=== PATIENT | female | born 1945 | race Caucasian/White ===

== ENCOUNTER 2017-10-18 12:35 | Emergency (ER) | payer MEDICARE, OTHER ==
[~2017-10-18] VITALS: Ht 157.5 cm; Wt 69.0 kg
[~2017-10-18 12:35] MED LIST: CHOL10002 PO; CLON.5 PO; HYDR1TAB94 PO; Hair, Skin & N1 EACH PO; KRILL OIL500 MG; Pepcid40 MG PO; Prilosec Otc20 MG PO; Prozac40 MG PO; Vitamin B Comple1 EA PO
== END 2017-10-18 13:54 | disposition home or self-care (01) ==
LOC: ER 12:35
DX: S43.401A Unspecified sprain of right shoulder joint, initial encounter (principal); Z88.2 Allergy status to sulfonamides; Z88.1 Allergy status to other antibiotic agents; Z88.5 Allergy status to narcotic agent; Z79.899 Other long term (current) drug therapy; Z87.891 Personal history of nicotine dependence; W01.0XXA Fall on same level from slipping, tripping and stumbling without subsequent striking against object, initial encounter
CPT/HCPCS: 73030; 99283

== ENCOUNTER → 2021-12-31 | Outpatient (CLI) | payer OTHER ==
[~2021-12-31] MED LIST changes: +ACET500 PO; +OMEP20ER PO
[2021-12-31 16:07] LABS: BASOPHILS ABSOLUTE AUTO 0.03 K/mm3 (0.00-0.23); BASOPHILS PERCENT AUTO 0 % (0-2); EOSINOPHILS ABSOLUTE AUTO 0.03 K/mm3 (0.00-0.68); EOSINOPHILS PERCENT AUTO 0 % (0-6); Hemoglobin 14.9 g/dL (11.5-16.0); IMMATURE GRAN ABSOLUTE AUTO 0.02 K/mm3 (0.00-0.10); IMMATURE GRAN PERCENT AUTO 0 % (0-1); LYMPHOCYTES ABSOLUTE AUTO 1.73 K/mm3 (0.84-5.20); LYMPHOCYTES PERCENT AUTO 24 % (21-46); MONOCYTES ABSOLUTE AUTO 0.64 K/mm3 (0.16-1.47); MONOCYTES PERCENT AUTO 9 % (4-13); Mean Corpuscular HGB 31.6 pg (26.0-34.0); Mean Corpuscular HGB Conc 34.7 g/dL (31.5-36.5); Mean Corpuscular Volume 91 fL (80-100); Mean Platelet Volume 10.6 fL (9.1-12.4); NEUTROPHILS ABSOLUTE AUTO 4.83 K/mm3 (1.96-9.15); NEUTROPHILS PERCENT AUTO 66 % (41-73); Platelet Count 257 K/mm3 (150-400); RDW Coefficient Variation 12.9 % (11.7-14.2); RDW Standard Deviation 42.8 fL (35.1-46.3); Red Blood Cell Count 4.71 M/mm3 (3.80-5.20); White Blood Cell Count 7.28 K/mm3 (4.00-11.30)
[2021-12-31 16:19] LABS: Albumin, Blood 3.4 g/dL (3.4-5.0); Bilirubin, Total 0.5 mg/dL (0.1-1.0); Bun/Creatinine Ratio 19.6 (12.0-20.0); Calcium, Blood 8.7 mg/dL (8.5-10.1); Creatinine, Blood 0.92 mg/dL (0.40-1.00); Globulin, Blood 3.3 g/dL (2.2-4.0); Potassium, Blood 3.7 mmol/L (3.5-5.5); Total Protein, Blood 6.7 g/dL (6.4-8.2)
== END | disposition home or self-care (01) ==
LOC: LAB 15:59 → LAB SHORT 15:59
PROVIDERS: Physician Assistant
DX: R10.13 Epigastric pain (principal); R06.00 Dyspnea, unspecified
CPT/HCPCS: 80053; 83690; 83880; 84484; 85025

== ENCOUNTER → 2023-02-06 | Outpatient (CLI) | payer OTHER | END | disposition home or self-care (01) | LOC: LAB 16:51 → LAB SHORT 16:51 | DX: N39.0 Urinary tract infection, site not specified (principal) | CPT/HCPCS: 87086 ==

== ENCOUNTER 2023-06-15 08:37 | Day surgery (SDC) | payer OTHER ==
[2023-06-15] VITALS (43 sets, daily range): BP systolic 81–168; BP diastolic 50–151
[~2023-06-15] VITALS: Ht 157.5 cm; Wt 70.6 kg
[~2023-06-15 08:37] MED LIST changes: +Lactated Ringer's 1,000 ML IV SCH
[2023-06-15] MEDS ORDERED: Benzocaine Oral Spray 0.5ML UD ONE (09:24)
[2023-06-15] MEDS ORDERED: propofoL 60 ML IV ONE (09:24)
--- NOTE | 2023-06-15 09:32 | NUR ---
06/15/23 0932 Corry Herrera HISTORY, CHART, MEDICATIONS AND ALLERGIES REVIEWED BEFORE START OF PROCEDURE. PATIENT CONFIRMS NPO STATUS AND AGREES WITH SCHEDULED PROCEDURE. 3-LEAD EKG REVIEWED WITH PHYSICIAN PRIOR TO START OF PROCEDURE. MONITOR INTACT WITH CONTINUOUS PULSE OXIMETRY,CAPNOGRAPHY, 3-LEAD EKG, INTERMITTENT BP. SUPPLEMENTAL O2 TO BE TITRATED THROUGHOUT PROCEDURE TO MAINTAIN O2 SATURATION ABOVE 90%. PATIENT DETERMINED TO BE ASA APPROPRIATE FOR PROPOFOL SEDATION PRIOR TO START OF PROCEDURE BY DR. SAHU
[2023-06-15] MEDS ORDERED: Midazolam HCl 1MG / ML 2ML Vial ONE (09:49)
[2023-06-15] MEDS ORDERED: Atropine Sulfate 0.1 MG/ML 10ML SYR ONE (10:05)
[2023-06-15] MEDS ORDERED: Ondansetron HCl 2 MG / ML 2ML Vial ONE (10:22)
[2023-06-15] MEDS ORDERED: ePHEDrine Sulfate 50 MG/ML 1ML Injection ONE (10:26)
[2023-06-15] MEDS ORDERED: Lactated Ringer's 0 ML IV ONE (10:36)
--- NOTE | 2023-06-15 11:47 | NUR ---
Discharge instructions reviewed with patient. Patient verbalizes understanding. Copy given to patient to take home. Discharged via wheelchair to private car for ride home.
--- NOTE | 2023-06-15 12:01 | NUR ---
PT HAD AN EPISODE OF VOMITING AFTER ABD PRESSURE. PT MAINTAINED AIRWAY T/O PROCEDURE. O2 REMAINED ABOVE 97% T/O THE PROCEDURE. PT WAS GIVEN ZOFRAN 4MG IV FOR VOMITING. PT WAKE WITHOUT DIFFICULTY. C/O SOME SLIGHT ABD CRAMPING.
== END 2023-06-15 11:47 | disposition home or self-care (01) ==
LOC: ORSCMMR 08:37 → ORD 09:30 → ORSCMMR 11:47
PROVIDERS: Internal Medicine Gastroenterology
PROC: 0DB48ZX Excision of Esophagogastric Junction, Via Natural or Artificial Opening Endoscopic, Diagnostic (ICD-10-PCS; principal; 2023-06-15 09:30)
PROC: 0DB78ZX Excision of Stomach, Pylorus, Via Natural or Artificial Opening Endoscopic, Diagnostic (ICD-10-PCS; principal; 2023-06-15 09:30)
PROC: 0DB98ZX Excision of Duodenum, Via Natural or Artificial Opening Endoscopic, Diagnostic (ICD-10-PCS; principal; 2023-06-15 09:30)
PROC: 0DBK8ZX Excision of Ascending Colon, Via Natural or Artificial Opening Endoscopic, Diagnostic (ICD-10-PCS; principal; 2023-06-15 09:30)
PROC: 0DB58ZX Excision of Esophagus, Via Natural or Artificial Opening Endoscopic, Diagnostic (ICD-10-PCS; principal; 2023-06-15 09:30)
PROC: 0DBH8ZX Excision of Cecum, Via Natural or Artificial Opening Endoscopic, Diagnostic (ICD-10-PCS; principal; 2023-06-15 09:30)
DX: R10.13 Epigastric pain (principal); K21.00 Gastro-esophageal reflux disease with esophagitis, without bleeding; Z12.11 Encounter for screening for malignant neoplasm of colon; Z86.010 Personal history of colon polyps; K29.80 Duodenitis without bleeding; D12.2 Benign neoplasm of ascending colon; D12.0 Benign neoplasm of cecum; F32.A Depression, unspecified; Z79.899 Other long term (current) drug therapy; Z87.891 Personal history of nicotine dependence
CPT/HCPCS: 88305; 88312; 88342; A9270; J0461; J2250; J2405; J2704; J7120

== ENCOUNTER 2024-06-28 17:51 | Observation (INO) | payer OTHER ==
[~2024-06-28] VITALS: Ht 157.5 cm; Wt 72.6 kg
[~2024-06-28 17:51] MED LIST changes: -Lactated Ringer's 1,000 ML IV SCH
[2024-06-28] MEDS ORDERED: Morphine Sulfate 4 MG/1 ML Injection IV ONE ×2 (18:35→21:10)
[2024-06-28 19:00] LABS: BASOPHILS ABSOLUTE AUTO 0.03 K/mm3 (0.00-0.23); BASOPHILS PERCENT AUTO 0 % (0-2); EOSINOPHILS ABSOLUTE AUTO 0.04 K/mm3 (0.00-0.68); EOSINOPHILS PERCENT AUTO 0 % (0-6); Hematocrit 36.6 % (33.0-51.0); Hemoglobin 12.6 g/dL (11.5-16.0); IMMATURE GRAN ABSOLUTE AUTO 0.08 K/mm3 (0.00-0.10); IMMATURE GRAN PERCENT AUTO 1 % (0-1); LYMPHOCYTES ABSOLUTE AUTO 0.83 K/mm3 (0.84-5.20); LYMPHOCYTES PERCENT AUTO 7 % (21-46); MONOCYTES ABSOLUTE AUTO 0.81 K/mm3 (0.16-1.47); MONOCYTES PERCENT AUTO 6 % (4-13); Mean Corpuscular HGB 31.8 pg (26.0-34.0); Mean Corpuscular HGB Conc 34.4 g/dL (31.5-36.5); Mean Corpuscular Volume 92 fL (80-100); Mean Platelet Volume 9.9 fL (9.1-12.4); NEUTROPHILS ABSOLUTE AUTO 10.83 K/mm3 (1.96-9.15); NEUTROPHILS PERCENT AUTO 86 % (41-73); Platelet Count 219 K/mm3 (150-400); RDW Coefficient Variation 12.9 % (11.7-14.2); RDW Standard Deviation 43.9 fL (35.1-46.3); Red Blood Cell Count 3.96 M/mm3 (3.80-5.20); White Blood Cell Count 12.62 K/mm3 (4.00-11.30)
[2024-06-28 19:26] LABS: Bilirubin, Total 0.3 mg/dL (0.1-1.0); Bun/Creatinine Ratio 32.9 (12.0-20.0); Calcium, Blood 8.4 mg/dL (8.5-10.1); Creatinine, Blood 0.91 mg/dL (0.40-1.00); Potassium, Blood 4.1 mmol/L (3.5-5.5)
[2024-06-28] MEDS ORDERED: Ondansetron HCl 2 MG / ML 2ML Vial IV PRN (20:15)
[2024-06-28] MEDS ORDERED: NS 1,000 ML IV SCH (20:20)
[2024-06-28 21:38] VITALS: BP 135/66
[2024-06-28] MEDS ORDERED: FLUOXETINE HCL60 MG PO (21:44)
[2024-06-28] MEDS ORDERED: CELE100 PO (21:44)
[2024-06-28] MEDS ORDERED: Acetaminophen 500 MG Tab PO PRN (21:45)
[2024-06-28] MEDS ORDERED: OxyCODONE HCL 5 MG TAB PO PRN (21:45)
[2024-06-28] MEDS ORDERED: Morphine Sulfate 4 MG/1 ML Injection IV PRN (21:45)
[2024-06-28] MEDS ORDERED: IBUP200 PO (21:46)
[2024-06-29 04:53] VITALS: BP 138/65
--- NOTE | 2024-06-29 06:05 | NUR ---
NOC SUMMARY- PT ARRIVED TO ROOM IN DISCOMFORT. PT PAIN MANGED WELL PER MAR. PT DRINKING FLUIDS. PT IS VOIDING VIA PUREWICK DEVICE. BLADDER SCAN COMPLETED WITH 288 NOTED PVR. PT IS PAINFUL WITH MINIMAL MOVEMENT. PT HAS BEEN ABLE TO SLEEP SOME. CALL LIGHT IN REACH.
[2024-06-29 07:35] VITALS: BP 137/69
[2024-06-29] MEDS ORDERED: Enoxaparin 40 MG/0.4 ML SYR SC SCH (09:00)
[2024-06-29 19:16] VITALS: BP 123/61
--- NOTE | 2024-06-29 19:43 | NUR ---
SUMMARY: NO ACUTE CHANGE TODAY. VSS, A/O. MEDICATED PER EMAR FOR PAIN. PT PAINFUL WITH ANY MOVEMENT AND REFUSED REPOSTIONING MOST OF TODAY. PUREWICK IN PLACE AND PT VOIDING. INSTRUCTED TO DO BED EXERCISES TODAY WITH THERAPY. NO ACUTE CONCERNS, PT USES CALL LIGHT. REPORT PASSED TO FROILAN ARAGON.
[2024-06-30 03:58] VITALS: BP 143/72
--- NOTE | 2024-06-30 05:10 | NUR ---
SHIFT SUMMARY/TRANSFER NO ACUTE CHANGES T/O SHIFT. IS A/OX4 WITH VSS, SPO2 AT 95% ON RA. DENIES SOB. PAIN MANAGED PER EMAR, REPOSITIONING AND ICE THERAPY. INCREASED BRUISING NOTED ON RIGHT ARM AND LEFT HIP. IS VOIDING CL YELLOW URINE, PUREWICK IN PLACE. BENY PO INTAKE, DENIES N/V. IV TO RIGHT AC PATENT/SL. IS PLEASANT AND COOPERATIVE WITH CARE. PLAN TO WORK WITH THERAPY TODAY AND REPEAT IMAGING IN THE MORNING PER ORDERS. PT TRANSFERRING TO PCU 1 AT THIS TIME VIA HOSPITAL BED BY STAFF. REPORT GIVEN TO SAMY, NURSE ASSUMING CARE. PT NOTIFIED OF TRANSFER, VERBALIZES UNDERSTANDING. DECLINES NEED TO NOTIFY FAMILY OF UNIT CHANGE. PERSONAL BELONGINGS SENT WITH PT, INCLUDING DENTURES AND BOTH HEARING AIDES.
[2024-06-30 05:26] LABS: BASOPHILS ABSOLUTE AUTO 0.05 K/mm3 (0.00-0.23); BASOPHILS PERCENT AUTO 0 % (0-2); EOSINOPHILS ABSOLUTE AUTO 0.09 K/mm3 (0.00-0.68); EOSINOPHILS PERCENT AUTO 1 % (0-6); Hematocrit 34.8 % (33.0-51.0); Hemoglobin 11.5 g/dL (11.5-16.0); IMMATURE GRAN ABSOLUTE AUTO 0.05 K/mm3 (0.00-0.10); IMMATURE GRAN PERCENT AUTO 0 % (0-1); LYMPHOCYTES ABSOLUTE AUTO 1.25 K/mm3 (0.84-5.20); LYMPHOCYTES PERCENT AUTO 11 % (21-46); MONOCYTES ABSOLUTE AUTO 0.88 K/mm3 (0.16-1.47); MONOCYTES PERCENT AUTO 7 % (4-13); Mean Corpuscular HGB 31.1 pg (26.0-34.0); Mean Corpuscular Volume 94 fL (80-100); Mean Platelet Volume 10.3 fL (9.1-12.4); NEUTROPHILS ABSOLUTE AUTO 9.62 K/mm3 (1.96-9.15); NEUTROPHILS PERCENT AUTO 81 % (41-73); Platelet Count 178 K/mm3 (150-400); RDW Coefficient Variation 13.4 % (11.7-14.2); RDW Standard Deviation 46.7 fL (35.1-46.3); White Blood Cell Count 11.94 K/mm3 (4.00-11.30)
[2024-06-30 05:41] VITALS: BP 130/60
[2024-06-30 05:45] LABS: Bun/Creatinine Ratio 26.4 (12.0-20.0); Creatinine, Blood 0.72 mg/dL (0.40-1.00); Potassium, Blood 3.8 mmol/L (3.5-5.5)
[2024-06-30] MEDS ORDERED: Omeprazole 20 MG CapCR PO SCH (06:00)
[2024-06-30 07:35] VITALS: BP 128/75
[2024-06-30] MEDS ORDERED: FLUoxetine HCL 20 MG CAP PO SCH (09:00)
[2024-06-30] MEDS ORDERED: Cholecalciferol 1000 Unit Tablet (=25MCG) PO SCH (09:00)
--- NOTE | 2024-06-30 09:43 | NUR ---
am note this rn assumed care at 0700. vital signs stable. surgical status no tele. patient is alert and oriented x4. neuro is intact. perrla. patient is able to make needs known and uses call light appropriately. denies chest pain/pressure or shortness of breath. patient reports pain in left pubic ramus, where patient has a fracture, and medication per emar. see shift assessment for further detials. plan to go to a skill nursing facility once insurance has been authorized. plan is up to date.
[2024-06-30 12:40] VITALS: BP 127/60
--- NOTE | 2024-06-30 13:36 | NUR ---
update patient will be transfering to surgical room 217
[2024-06-30 13:53] VITALS: BP 129/65
--- NOTE | 2024-06-30 13:55 | NUR ---
ARRIVAL TO SURGICAL UNIT PLEASANT & ALERT. THANKFUL FOR CARE. LUNGS CLEAR & HRR. PPP. PUREWICK IN PLACE. VSS. MEDICATED FOR PAIN.
--- NOTE | 2024-06-30 14:12 | NUR ---
transfer of care patient left with all belongings to surgical room 217 at approx 1400. patient friend at bedside and aware of new room. plan remains up to date.
[2024-06-30 19:32] VITALS: BP 121/66
--- NOTE | 2024-07-01 03:04 | NUR ---
SHIFT SUMMARY PT HERE FOR PUBIC RAMUS FX DUE TO FALL AT HOME. NO ACUTE CONCERNS THIS SHIFT. PT'S PAIN MANAGED PER EMAR. PT USES CALL LIGHT APPROPRIATELY. VITALS STABLE THIS SHIFT, PUREWICK IN PLACE, IV SALINE LOCKED. PLAN IS TO D/C TO SNF.
[2024-07-01 03:54] VITALS: BP 124/62
[2024-07-01 07:33] VITALS: BP 120/62
[2024-07-01 08:28] LABS: BASOPHILS ABSOLUTE AUTO 0.03 K/mm3 (0.00-0.23); BASOPHILS PERCENT AUTO 0 % (0-2); EOSINOPHILS PERCENT AUTO 2 % (0-6); Hematocrit 31.9 % (33.0-51.0); Hemoglobin 10.9 g/dL (11.5-16.0); IMMATURE GRAN ABSOLUTE AUTO 0.02 K/mm3 (0.00-0.10); IMMATURE GRAN PERCENT AUTO 0 % (0-1); LYMPHOCYTES ABSOLUTE AUTO 1.07 K/mm3 (0.84-5.20); LYMPHOCYTES PERCENT AUTO 13 % (21-46); MONOCYTES ABSOLUTE AUTO 0.69 K/mm3 (0.16-1.47); MONOCYTES PERCENT AUTO 8 % (4-13); Mean Corpuscular HGB 31.8 pg (26.0-34.0); Mean Corpuscular HGB Conc 34.2 g/dL (31.5-36.5); Mean Corpuscular Volume 93 fL (80-100); Mean Platelet Volume 10.2 fL (9.1-12.4); NEUTROPHILS ABSOLUTE AUTO 6.17 K/mm3 (1.96-9.15); NEUTROPHILS PERCENT AUTO 76 % (41-73); Platelet Count 149 K/mm3 (150-400); RDW Coefficient Variation 13.2 % (11.7-14.2); RDW Standard Deviation 45.4 fL (35.1-46.3); Red Blood Cell Count 3.43 M/mm3 (3.80-5.20); White Blood Cell Count 8.18 K/mm3 (4.00-11.30)
[2024-07-01 08:55] LABS: Bun/Creatinine Ratio 19.1 (12.0-20.0); Calcium, Blood 7.9 mg/dL (8.5-10.1); Creatinine, Blood 0.63 mg/dL (0.40-1.00); Potassium, Blood 3.9 mmol/L (3.5-5.5)
[2024-07-01 14:47] VITALS: BP 94/65
--- NOTE | 2024-07-01 16:08 | NUR ---
ATTEMPTED TO CALL REPORT AT 1600. WILL CALL BACK
--- NOTE | 2024-07-01 16:22 | NUR ---
DISCHARGE TRANSFERED TO WHEEL CHAIR PIVOT TRANSFER WITH GB, IV TAKEN OUT INTACT. REPORT CALLED TO [facility].ALL BELONGINGS WITH PATIENT AND TILE SHADER. PACKET AND PRESCRIPTION WITH TRANSPORT.
== END 2024-07-01 16:22 ==
LOC: ER 17:51 → SURS 17:52 → ER 20:14 → SURS 20:45 → PCU 06-30 05:30 → SURS 06-30 13:50
PROVIDERS: Family Medicine; Student in an Organized Health Care Education/Training Program; ADMIT Internal Medicine
DX: S32.512A Fracture of superior rim of left pubis, initial encounter for closed fracture (principal); S32.592A Other specified fracture of left pubis, initial encounter for closed fracture; S32.402A Unspecified fracture of left acetabulum, initial encounter for closed fracture; W11.XXXA Fall on and from ladder, initial encounter; K21.9 Gastro-esophageal reflux disease without esophagitis; F32.A Depression, unspecified; D64.9 Anemia, unspecified; D69.6 Thrombocytopenia, unspecified; D72.829 Elevated white blood cell count, unspecified; Z87.891 Personal history of nicotine dependence; Z88.5 Allergy status to narcotic agent; Z88.2 Allergy status to sulfonamides; Z88.1 Allergy status to other antibiotic agents; Z79.899 Other long term (current) drug therapy
CPT/HCPCS: 36415; 72192; 73502; 76377; 80048; 80053; 85025; 93971; 96372; 96374; 96376; 97110; 97161; 97530; 99284-25; A9270; G0378; J1650; J2270; J7030